=== PATIENT | female | born 1995 | race African-American/Black ===

== ENCOUNTER 2018-03-11 20:30 | Emergency (ER) | payer OTHER ==
[~2018-03-11] VITALS: Ht 165.1 cm; Wt 61.8 kg
[2018-03-11 20:33] VITALS: TEMP 98.9
[2018-03-11 22:10] LABS: COLLECTION METHOD CLEAN CATCH
[2018-03-11 22:19] LABS: PH 6 (5-8); SQUAMOUS EPITHELIAL 0-2 /hpf; URINE APPEARANCE Clear; URINE BACTERIA None Seen /hpf; URINE BILIRUBIN Negative (NEGATIVE); URINE BLOOD Negative (NEGATIVE); URINE COLOR Yellow; URINE GLUCOSE Negative (NEGATIVE); URINE KETONE Negative (NEGATIVE); URINE LEUKOCYTE ESTERASE Negative (NEGATIVE); URINE NITRATE Negative (NEGATIVE); URINE PROTEIN(semi-quant) Negative (NEGATIVE); URINE RBC 0-2 /hpf; URINE UROBILINOGEN Negative (NEGATIVE)
[2018-03-12] LABS: BASO # 0.1 (0.0-0.2); BASO % 0.7 % (0.0-2.0); EOS # 0.2 (0.0-0.7); GRAN # 3.8 (1.4-6.5); GRAN % 49.5 % (42.2-75.2); HEMATOCRIT 37.6 % (37.0-47.0); HEMOGLOBIN 12.2 g/dl (12.5-16.0); LYMPH # 2.5 (1.2-3.4); LYMPH % 32.5 % (20.0-51.0); MEAN CELL VOLUME 90 fl (80.0-100.0); MEAN CORPUSCULAR HEMOGLOBIN 29 pg (27.0-31.0); MEAN CORPUSCULAR HGB CONC 32 g/dl (33.0-37.0); MEAN PLATELET VOLUME 9.4 fl (7.4-10.4); MONO # 1.1 (0.1-0.6); PLATELET COUNT 259 K/mm3 (130-400); RED BLOOD COUNT 4.17 M/mm3 (4.10-5.30); REDCELL DISTRIBUTION WIDTH-CV 12.7 % (11.5-14.5)
[2018-03-12] MEDS ORDERED: NORCO 325 MG-51 TAB PO (00:36)
[2018-03-12] MEDS ORDERED: DOXYCYCLINE 10100 MG PO (00:36)
[2018-03-12 00:48] VITALS: BP 121/69; PULSE 62
== END 2018-03-12 00:56 | disposition home or self-care (01) ==
LOC: COL.ER 20:30
PROVIDERS: Nurse Practitioner
DX: K76.89 Other specified diseases of liver (principal); J18.1 Lobar pneumonia, unspecified organism; Z98.890 Other specified postprocedural states
CPT/HCPCS: J1885; J2360; Q9967